=== PATIENT | male | born 1945 | race Native Hawaiian/Other Pacific Islander ===

== ENCOUNTER 2020-06-08 02:23 | Emergency (ER) | payer OTHER ==
[~2020-06-08] VITALS: Ht 193 cm; Wt 95.3 kg
[2020-06-08 02:25] VITALS: TEMP 98.8
[2020-06-08 04:30] VITALS: BP 135/74
== END 2020-06-08 05:28 | disposition home or self-care (01) ==
LOC: ED 02:23
DX: R41.82 Altered mental status, unspecified (principal)
CPT/HCPCS: 99281

== ENCOUNTER 2022-11-26 13:27 | Emergency (ER) | payer OTHER ==
[~2022-11-26] VITALS: Ht 193 cm; Wt 78.5 kg
[2022-11-26 13:27] VITALS: BP 139/61; TEMP 97.9
[2022-11-26 14:29] LABS: PLATELET COUNT 176 K/uL (142-355)
[2022-11-26 14:37] LABS: POTASSIUM 3.6 mmol/L (3.6-5.2)
[2022-11-26] MEDS ORDERED: ASPIRIN/ENTERIC81 MG PO (15:08)
[2022-11-26] MEDS ORDERED: DONE5TAB PO (15:09)
[2022-11-26] MEDS ORDERED: FISH OIL1000 M1 PO (15:11)
[2022-11-26] MEDS ORDERED: HYDROXYZINE HYD25 MG PO (15:13)
[2022-11-26] MEDS ORDERED: LISI20TA31 PO (15:14)
[2022-11-26] MEDS ORDERED: RISP0.25 PO (15:15)
[2022-11-26] MEDS ORDERED: SIMV20TA2 PO (15:16)
[2022-11-26] MEDS ORDERED: SYNJARDY 12.5-11 TAB PO (15:17)
[2022-11-26] MEDS ORDERED: TAMS0.4C PO (15:18)
[2022-11-26] MEDS ORDERED: [UNRECOGNIZED DRUG - OTHER] PO (15:19)
[2022-11-26] MEDS ORDERED: TRESIBA FL100 UNIT/M SC (15:20)
[2022-11-26] MEDS ORDERED: HYDROCORTISONE 1% EX (15:22)
== END 2022-11-26 14:35 | disposition other institution (70) ==
LOC: ED 13:27
PROVIDERS: Family Medicine
DX: Z04.6 Encounter for general psychiatric examination, requested by authority (principal); F03.92 Unspecified dementia, unspecified severity, with psychotic disturbance; E11.9 Type 2 diabetes mellitus without complications; K21.9 Gastro-esophageal reflux disease without esophagitis; E78.00 Pure hypercholesterolemia, unspecified; I12.9 Hypertensive chronic kidney disease with stage 1 through stage 4 chronic kidney disease, or unspecified chronic kidney disease; N18.9 Chronic kidney disease, unspecified; N40.0 Benign prostatic hyperplasia without lower urinary tract symptoms; Z20.822 Contact with and (suspected) exposure to COVID-19
CPT/HCPCS: 36415; 80053; 85027; 87635; 93005; 99283; U0003

== ENCOUNTER 2022-12-04 14:30 | Observation (INO) | payer OTHER ==
[2022-12-04] VITALS (13 sets, daily range): BP systolic 69–96; BP diastolic 34–57; TEMP 96
[~2022-12-04] VITALS: Ht 193 cm; Wt 67.8 kg
[~2022-12-04 14:30] MED LIST: ASPIRIN/ENTERIC81 MG PO; DONE5TAB PO; FISH OIL1000 M1 PO; HYDROCORTISONE 1% EX; HYDROXYZINE HYD25 MG PO; LISI20TA31 PO; RISP0.25 PO; SIMV20TA2 PO; SYNJARDY 12.5-11 TAB PO; TAMS0.4C PO; TRESIBA FL100 UNIT/M SC; [UNRECOGNIZED DRUG - OTHER] PO
[2022-12-04 15:03] LABS: POTASSIUM 3.2 mmol/L (3.6-5.2)
[2022-12-04 15:06] LABS: PLATELET COUNT 349 K/uL (142-355)
[2022-12-05] VITALS (23 sets, daily range): BP systolic 88–138; BP diastolic 49–64; TEMP 98.5–110.7; Ht 193 cm; Wt 67.8 kg
[2022-12-06 03:33] VITALS: BP 106/59; TEMP 98.6
[2022-12-06 07:54] VITALS: BP 107/54; TEMP 97.2
[2022-12-06 12:02] VITALS: BP 84/47; TEMP 98.2
== END 2022-12-06 19:37 | disposition expired ==
LOC: ED 14:34 → MED/SURG 12-05 07:16
PROVIDERS: Family Medicine; ADMIT Nurse Practitioner Family; ATTEND Internal Medicine Endocrinology, Diabetes & Metabolism
DX: I46.9 Cardiac arrest, cause unspecified (principal); J96.01 Acute respiratory failure with hypoxia; N17.8 Other acute kidney failure; N18.9 Chronic kidney disease, unspecified; Z66 Do not resuscitate; F03.90 Unspecified dementia, unspecified severity, without behavioral disturbance, psychotic disturbance, mood disturbance, and anxiety; N40.0 Benign prostatic hyperplasia without lower urinary tract symptoms; E78.49 Other hyperlipidemia; I95.89 Other hypotension; E11.9 Type 2 diabetes mellitus without complications; Z79.4 Long term (current) use of insulin
CPT/HCPCS: 31500; 36600; 80053; 82805; 84484; 85027; 93005; 94002; 94003; 94760; 96361; 96365; 96366; 96375; 96376; 99221; 99285; G0378; J0692; J1953; J2270; J3370; J3490